=== PATIENT | female | born 1940 | race Caucasian/White ===

== ENCOUNTER 2020-12-22 06:57 | Day surgery (SDC) | payer MEDICARE, OTHER ==
[2020-12-22] MEDS ORDERED: Lactated Ringers 1,000 ML IV SCH (07:00)
[2020-12-22] MEDS ORDERED: Propofol 200 MG/20 ML SDV ONE (08:50)
[2020-12-22] MEDS ORDERED: Midazolam 1 MG/ML 2 ML SDV ONE (08:50)
[2020-12-22 10:27] VITALS: BP 165/64; PULSE 63
--- NOTE | 2020-12-22 13:16 | OR ---
PREOPERATIVE DIAGNOSIS: Screening colonoscopy. POSTOPERATIVE DIAGNOSIS: Colon polyp. PROCEDURE PERFORMED: Total flexible colonoscopy with biopsies. ANESTHESIA: MAC anesthesia. COMPLICATIONS: None. BLOOD LOSS: Minimal. FINDINGS: 1. Cecal polyp, 10 mm, hot snare. 2. Tortuous sigmoid colon, requiring some abdominal pressure to traverse. START TIME: 0933. CECUM TIME: 0949. STOP TIME: 09. BOWEL PREP: [place] class 3. INDICATIONS FOR PROCEDURE: Daina Lundberg is a 80-year-old female who had her last colonoscopy 6 years ago. She denies a history of polyps, but she is not certain of this. No bloody or dark black stools. No family history of colon cancer. DETAILS OF PROCEDURE: Informed consent was obtained. The patient was brought to the procedure room and placed in left lateral decubitus position. The colonoscope was introduced into the rectum and advanced all the way to the cecum. Sigmoid was tortuous and required some abdominal pressure to traverse. The ileocecal valve and appendiceal orifice were photographed. The colonoscope was then slowly withdrawn. No pathology was identified except for what is mentioned in the above findings section. Retroflexed view was obtained and the colonoscope was removed. The patient tolerated the procedure well, was awoken from MAC anesthesia by Anesthesia colleagues without incident. PATHOLOGY: Colon, cecal polyp, polypectomy Fragments of tubulovillous adenoma. RECOMMENDATIONS: 1. May be able to stop colon cancer screening given age. Recommend risks and benefits in discussion with PCP. RKM: 12/22/2020 10:04:16 MODL: 12/22/2020 11:40:28 /[id number] GABRIELLA
--- NOTE | 2020-12-29 14:49 | LETTER ---
12/29/2020 Daina Kennedy [address]son [address] [place] [id number]. RE: DAINA KENNEDY BRYSON : 1940 Dear Ms. Lundberg: I am writing to inform you of the pathology results of your recent colonoscopy. We removed 1 large polyp from the right side of your colon. This was a tubulovillous adenoma. This is a polyp, which does not contain cancer but it can become cancer, which is why we removed them. Normally, we stop screening colonoscopies at age 80. Typically, we would consider doing a repeat colonoscopy at a 3 year interval at which point you will be over the age of 80. I recommend that you discuss the risks and benefits of continued screening with your PCP, but you maybe able to stop colon cancer screening. Warmest regards,
== END 2020-12-22 10:50 | disposition home or self-care (01) ==
LOC: VM.SDS 06:57
PROVIDERS: ATTEND Student in an Organized Health Care Education/Training Program
DX: Z12.11 Encounter for screening for malignant neoplasm of colon (principal); D12.0 Benign neoplasm of cecum; F32.9 Major depressive disorder, single episode, unspecified; F41.9 Anxiety disorder, unspecified; M81.0 Age-related osteoporosis without current pathological fracture; M19.90 Unspecified osteoarthritis, unspecified site; E78.00 Pure hypercholesterolemia, unspecified; E78.5 Hyperlipidemia, unspecified; Z83.71 Family history of colonic polyps; Z79.899 Other long term (current) drug therapy; Z88.1 Allergy status to other antibiotic agents; Z88.8 Allergy status to other drugs, medicaments and biological substances
CPT/HCPCS: 00811; 88305; J2250; J2704; J7120

== ENCOUNTER 2022-01-01 18:35 | Inpatient (IN) | payer OTHER, MEDICARE ==
[2022-01-01] MEDS ORDERED: Ondansetron 4 MG/2 ML SDV IVPUSH ONE (18:43)
[2022-01-01] MEDS ORDERED: Lidocaine 1% 5 ML VIAL INJECT ONE (18:48)
[2022-01-01 20:53] LABS: CHLORIDE,CL 103 mmol/L (98-107); SODIUM,NA 140 mmol/L (136-145)
[2022-01-01 20:54] LABS: ANION GAP 12.2 mmol/L (5-15); ESTIMATED GFR 51 mL/min (>=60)
[2022-01-01] MEDS ORDERED: Acetaminophen 325 MG Tab PO PRN (21:28)
[2022-01-01] MEDS: HYDROmorphone 0.5 MG/0.5 ML Syringe IVPUSH PRN (22:10)
[2022-01-01] MEDS: oxyCODONE 5 MG Tab PO PRN (23:10)
[2022-01-01] MEDS: Ondansetron 4 MG Tab.DIS PO PRN (23:11)
[2022-01-02] MEDS: oxyCODONE 5 MG Tab PO PRN ×3 (03:24→13:50)
[2022-01-02] MEDS: HYDROmorphone 0.5 MG/0.5 ML Syringe IVPUSH PRN (05:52)
[2022-01-02 07:05] LABS: ANION GAP 13.1 mmol/L (5-15)
[2022-01-02] MEDS: Ondansetron 4 MG Tab.DIS PO PRN (08:46)
[2022-01-02] MEDS ORDERED: PAROXETINE 10 MG PO SCH (09:00)
[2022-01-02] MEDS ORDERED: Cholecalciferol (Vitamin D3) 25 MCG Tab PO SCH (09:00)
[2022-01-02] MEDS ORDERED: Calcium Carbonate/Vitamin D3 1250 MG-5 MCG Tab PO SCH (09:00)
[2022-01-02 10:51] VITALS: BP 149/59; PULSE 73
== END 2022-01-02 14:00 | disposition short-term general hospital (02) | DRG 536 ==
LOC: VM.ED 18:35 → VM.MS 20:11 → VM.ED 20:31
PROVIDERS: ADMIT Family Medicine; ATTEND Family Medicine
DX: S72.091A Other fracture of head and neck of right femur, initial encounter for closed fracture (principal); E78.5 Hyperlipidemia, unspecified; F41.9 Anxiety disorder, unspecified; F32.A Depression, unspecified; M81.0 Age-related osteoporosis without current pathological fracture; N18.31 Chronic kidney disease, stage 3a; Z66 Do not resuscitate; Z98.42 Cataract extraction status, left eye; Z87.19 Personal history of other diseases of the digestive system; Z79.1 Long term (current) use of non-steroidal anti-inflammatories (NSAID); Z79.899 Other long term (current) drug therapy; Z98.41 Cataract extraction status, right eye; Z90.89 Acquired absence of other organs; Z90.710 Acquired absence of both cervix and uterus; W18.30XA Fall on same level, unspecified, initial encounter; Y92.89 Other specified places as the place of occurrence of the external cause
CPT/HCPCS: 12001; 36415; 72170; 80048; 85025; 85027; 96374; 99285-25; A9270-GY; J1170; J2405

== ENCOUNTER 2022-01-04 14:33 | Inpatient (IN) | payer MEDICARE, OTHER ==
[2022-01-04] MEDS ORDERED: Ondansetron 4 MG Tab.DIS PO PRN (16:38)
[2022-01-04] MEDS ORDERED: Bisacodyl 5 MG Tab PO PRN (16:38)
[2022-01-04] MEDS ORDERED: Acetaminophen/HYDROcodone 325-5 MG Tab PO PRN (16:38)
[2022-01-04] MEDS ORDERED: Melatonin 3 MG Tab PO PRN (16:38)
[2022-01-04] MEDS ORDERED: Bisacodyl 10 MG Supp RECTAL PRN (16:38)
[2022-01-04] MEDS ORDERED: Acetaminophen 325 MG Tab PO PRN (16:38)
[2022-01-04] MEDS ORDERED: Calcium Carbonate 750 MG Tab.Chew PO PRN (16:45)
[2022-01-04] MEDS: Aspirin 81 MG Tab.EC PO SCH (18:44)
[2022-01-04] MEDS: traMADol 50 MG Tab PO SCH (18:44)
[2022-01-04] MEDS: Acetaminophen 325 MG Tab PO SCH (20:27)
[2022-01-05] MEDS: traMADol 50 MG Tab PO SCH ×4 (00:35→17:50)
[2022-01-05] MEDS: Acetaminophen 325 MG Tab PO SCH ×4 (05:13→21:12)
[2022-01-05] MEDS: Cholecalciferol (Vitamin D3) 25 MCG Tab PO SCH (08:35)
[2022-01-05] MEDS: Aspirin 81 MG Tab.EC PO SCH ×2 (08:35→17:50)
[2022-01-05] MEDS: Calcium Carbonate/Vitamin D3 1250 MG-5 MCG Tab PO SCH (08:35)
[2022-01-05] MEDS: Polyethylene Glycol 3350 Powder 17 GM Packet PO SCH (08:36)
[2022-01-05] MEDS: PARoxetine 20 MG Tab PO SCH (08:36)
[2022-01-06] MEDS: traMADol 50 MG Tab PO SCH ×4 (01:53→17:48)
[2022-01-06] MEDS: Acetaminophen 325 MG Tab PO SCH ×4 (02:43→20:53)
[2022-01-06] MEDS: Calcium Carbonate/Vitamin D3 1250 MG-5 MCG Tab PO SCH (08:41)
[2022-01-06] MEDS: Cholecalciferol (Vitamin D3) 25 MCG Tab PO SCH (08:42)
[2022-01-06] MEDS: PARoxetine 20 MG Tab PO SCH (08:42)
[2022-01-06] MEDS: Polyethylene Glycol 3350 Powder 17 GM Packet PO SCH ×2 (08:42→20:53)
[2022-01-06] MEDS: Aspirin 81 MG Tab.EC PO SCH (08:42)
[2022-01-06] MEDS: Enoxaparin 40 MG/0.4 ML Syringe SUBCUT SCH (12:37)
[2022-01-07] MEDS: traMADol 50 MG Tab PO SCH ×4 (03:20→18:39)
[2022-01-07] MEDS: Acetaminophen 325 MG Tab PO SCH ×4 (05:02→22:14)
[2022-01-07 07:16] LABS: ANION GAP 10.7 mmol/L (5-15)
[2022-01-07] MEDS: Cholecalciferol (Vitamin D3) 25 MCG Tab PO SCH (08:22)
[2022-01-07] MEDS: Aspirin 81 MG Tab.EC PO SCH (08:22)
[2022-01-07] MEDS: Calcium Carbonate/Vitamin D3 1250 MG-5 MCG Tab PO SCH (08:22)
[2022-01-07] MEDS: PARoxetine 20 MG Tab PO SCH (08:24)
[2022-01-07] MEDS: Polyethylene Glycol 3350 Powder 17 GM Packet PO SCH ×2 (08:25→22:15)
[2022-01-07] MEDS: Enoxaparin 40 MG/0.4 ML Syringe SUBCUT SCH (12:03)
[2022-01-08] MEDS: traMADol 50 MG Tab PO SCH ×5 (00:45→23:58)
[2022-01-08] MEDS: Acetaminophen 325 MG Tab PO SCH ×4 (03:33→20:18)
[2022-01-08] MEDS: Calcium Carbonate/Vitamin D3 1250 MG-5 MCG Tab PO SCH (08:44)
[2022-01-08] MEDS: Aspirin 81 MG Tab.EC PO SCH (08:44)
[2022-01-08] MEDS: PARoxetine 20 MG Tab PO SCH (08:45)
[2022-01-08] MEDS: Polyethylene Glycol 3350 Powder 17 GM Packet PO SCH ×2 (08:45→20:19)
[2022-01-08] MEDS: Cholecalciferol (Vitamin D3) 25 MCG Tab PO SCH (08:47)
[2022-01-08] MEDS: Enoxaparin 40 MG/0.4 ML Syringe SUBCUT SCH (12:53)
[2022-01-09] MEDS: Acetaminophen 325 MG Tab PO SCH ×4 (02:49→21:09)
[2022-01-09] MEDS: traMADol 50 MG Tab PO SCH ×3 (05:56→17:47)
[2022-01-09] MEDS: Cholecalciferol (Vitamin D3) 25 MCG Tab PO SCH (08:10)
[2022-01-09] MEDS: Calcium Carbonate/Vitamin D3 1250 MG-5 MCG Tab PO SCH (08:10)
[2022-01-09] MEDS: Aspirin 81 MG Tab.EC PO SCH (08:10)
[2022-01-09] MEDS: Polyethylene Glycol 3350 Powder 17 GM Packet PO SCH ×2 (08:11→21:10)
[2022-01-09] MEDS: PARoxetine 20 MG Tab PO SCH (08:11)
[2022-01-09] MEDS: Enoxaparin 40 MG/0.4 ML Syringe SUBCUT SCH (14:05)
[2022-01-10] MEDS: traMADol 50 MG Tab PO SCH ×4 (02:27→17:43)
[2022-01-10] MEDS: Acetaminophen 325 MG Tab PO SCH ×4 (03:44→20:11)
[2022-01-10] MEDS: Polyethylene Glycol 3350 Powder 17 GM Packet PO SCH (08:45)
[2022-01-10] MEDS: Aspirin 81 MG Tab.EC PO SCH (08:46)
[2022-01-10] MEDS: Calcium Carbonate/Vitamin D3 1250 MG-5 MCG Tab PO SCH (08:47)
[2022-01-10] MEDS: Cholecalciferol (Vitamin D3) 25 MCG Tab PO SCH (08:47)
[2022-01-10] MEDS: PARoxetine 20 MG Tab PO SCH (08:48)
[2022-01-10] MEDS: Enoxaparin 40 MG/0.4 ML Syringe SUBCUT SCH (12:33)
[2022-01-10] MEDS ORDERED: Polyethylene Glycol 3350 Powder 17 GM Packet PO PRN (19:39)
[2022-01-11] MEDS: traMADol 50 MG Tab PO SCH ×2 (00:26→05:47)
[2022-01-11 05:51] VITALS: BP 170/76; PULSE 87
[2022-01-11] MEDS: Acetaminophen 325 MG Tab PO SCH (08:15)
[2022-01-11] MEDS: Cholecalciferol (Vitamin D3) 25 MCG Tab PO SCH (08:16)
[2022-01-11] MEDS: Aspirin 81 MG Tab.EC PO SCH (08:16)
[2022-01-11] MEDS: Calcium Carbonate/Vitamin D3 1250 MG-5 MCG Tab PO SCH (08:16)
[2022-01-11] MEDS: PARoxetine 20 MG Tab PO SCH (08:20)
[2022-01-11] MEDS ORDERED: traMADol 50 MG Tab PO PRN (08:38)
== END 2022-01-11 11:00 | disposition home or self-care (01) | DRG 561 ==
LOC: VM.MS 16:48
PROVIDERS: ADMIT Internal Medicine; ATTEND Internal Medicine
DX: Z47.1 Aftercare following joint replacement surgery (principal); Z96.641 Presence of right artificial hip joint; M81.0 Age-related osteoporosis without current pathological fracture; F41.9 Anxiety disorder, unspecified; F32.A Depression, unspecified; K59.00 Constipation, unspecified; R03.0 Elevated blood-pressure reading, without diagnosis of hypertension; N18.31 Chronic kidney disease, stage 3a; E55.9 Vitamin D deficiency, unspecified; E78.5 Hyperlipidemia, unspecified; Z88.0 Allergy status to penicillin; Z88.1 Allergy status to other antibiotic agents; Z79.82 Long term (current) use of aspirin; Z79.899 Other long term (current) drug therapy; Z90.710 Acquired absence of both cervix and uterus
CPT/HCPCS: 36415; 80048; 85025; 97110-GP; 97116-GP; 97161-GP; 97165-GO; 97535-GO; A9270-GY; J1650